=== PATIENT | male | born 1970 | race Caucasian/White ===

== ENCOUNTER → 2017-07-21 11:37 | Outpatient (CLI) | payer SELFPAY ==
[2017-07-21 13:28] LABS: Basophils % 0.6 % (0.1-2.0); Eosinophils # 0.3 K/mm3 (0.0-0.4); Eosinophils % 4.8 % (0.1-12.0); Hematocrit 46.4 % (42.0-52.0); Hemoglobin 15.2 g/dL (14.1-18.0); Lymphocytes # 1.5 K/mm3 (0.7-4.5); Lymphocytes % 24.6 K/mm3 (10-50); Mean Corpuscular HGB Conc 32.9 g/dL (31.8-35.4); Mean Corpuscular Hemoglobin 32.1 pg (27.0-31.2); Mean Corpuscular Volume 97.7 fl (80-94); Mean Platelet Volume 7.4 fl (7.4-10.4); Monocytes # 0.5 K/mm3 (0.1-1.0); Monocytes % 7.7 % (1.7-9.3); Neutrophils # 3.9 K/mm3 (1.8-7.8); Neutrophils % 62.3 % (37.0-80.0); Platelet Count 255 K/mm3 (142-424); Red Blood Count 4.75 M/mm3 (4.60-6.20); Red Cell Distribution Width 12.4 % (11.5-17.5); White Blood Count 6.2 K/mm3 (4.8-10.8)
[2017-07-21 14:11] LABS: Erythrocyte Sedimentation Rate 24 mm/hr (0-15)
[2017-07-21 14:13] LABS: Alanine Aminotransferase 66 U/L (12-78); Albumin Level 3.7 gm/dL (3.4-5.0); Albumin/Globulin Ratio 0.9 (1.1-1.8); Alkaline Phosphatase 101 U/L (46-116); Anion Gap 12.2 mEq/L (5-15); Aspartate Amino Transferase 101 U/L (15-37); Bilirubin,Total 0.8 mg/dL (0.2-1.0); Blood Urea Nitrogen 11 mg/dL (7-18); Calcium 9.6 mg/dL (8.5-10.1); Carbon Dioxide 30 mmol/L (21.0-32.0); Chloride 103 mmol/L (98-107); Creatinine,Serum 1.05 mg/dL (0.70-1.30); Estimated Glomerular Filt Rate 75 ml/min (>60); GFR (African American) 91 ML/MIN (>60); Globulin 3.9 gm/dl (1.3-3.2); Glucose 114 mg/dL (74-106); Magnesium 1.3 mg/dL (1.4-2.2); Potassium 4.2 mmoL/L (3.5-5.1); Sodium 141 mmol/L (136-145); Total Protein,Serum 7.6 gm/dL (6.4-8.2)
[2017-07-21 14:15] LABS: Ethyl Alcohol 0 mg/dL (0-99)
[2017-07-23 06:28] LABS: Folate 5.7 ng/mL (>3.0); Rapid Plasma Reagin Ab Titer Non Reactive (NonRea<1:1); Triiodothyronine (T3) Total 115 ng/dL (71-180); Vitamin B12 718 pg/mL (232-1245)
[2017-07-24 06:27] LABS: Vitamin B1 134.3 nmol/L (66.5-200.0)
== END ==
PROVIDERS: Visit Provider Nurse Practitioner Family
DX: F10.20 Alcohol dependence, uncomplicated (principal); K72.90 Hepatic failure, unspecified without coma; R25.1 Tremor, unspecified; R41.3 Other amnesia
CPT/HCPCS: 36415; 80053; 82607; 82746; 83735; 84425; 84436; 84443; 84480; 85025; 85651; 86592

== ENCOUNTER 2019-06-30 14:00 | Emergency (ER) | payer MEDICAID, SELFPAY ==
[2019-06-30 14:06] VITALS: BP 152/95; PULSE 92; RESP 18; TEMP 36.3; O2SAT 97; BMI 31.1
[2019-06-30 14:15] VITALS: BP 152/95; PULSE 92; RESP 18; TEMP 36.3; O2SAT 97; BMI 31.1
--- NOTE | 2019-06-30 14:21 | HMH.EDUTC ---
[facility] Disposition Clinical Impression: Bronchitis Sinusitis Qualifiers: Sinusitis location: unspecified location Chronicity: acute Recurrence: non-recurrent Qualified Code(s): J01.90 - Acute sinusitis, unspecified Disposition: Home, Self-Care Condition on Discharge: Good Instructions: Sinusitis, DI for Sinusitis Additional Instructions: Drink plenty of fluids. Take tylenol or ibuprofen for pain or fever. Take the medications as directed. Follow up with your regular doctor. GO TO THE ER FOR ANY WORSENING SYMPTOMS Prescriptions: predniSONE [Deltasone 10mg tablet] 10 mg PO BID 3 Days #6 tab [facility]: [facility] Benzon[facility] [Tessalon Perle 100mg Cap] 100 mg PO TIDP PRN #30 cap PRN Reason: Cough [facility]: [facility] Azithromycin [Z-Familia 250mg Tab*] 250 mg PO UD DOSE PK #6 tab Transmission Status: [facility] Referrals: Jade Mathis APRN [Primary Care Provider] - Forms: Work/School Release Time of Disposition: 14:45 Medical Decision Making - Medical Records Medical records reviewed: No: I reviewed the patient's medical records. - Tayo Inquiry Pt receiving controlled substance: No Vital Signs: 06/30/19 14:06 06/30/19 14:15 06/30/19 14:52 Temperature 97.3 F L 97.3 F L 97.3 F L Temperature Source Oral Oral Pulse Rate 92 H Pulse Rate [Radial] 92 H 92 H Respiratory Rate 18 18 18 Blood Pressure 152/95 H Blood Pressure [Right Arm] 152/95 H 152/95 H Blood Pressure Mean [Right Arm] 114 114 Blood Pressure Source [Right Arm] Automatic Cuff Automatic Cuff Blood Pressure Position [Right Arm] Sitting Sitting 02 Sat by Pulse Oximetry 97 97 Oxygen Delivery Method Room Air Room Air - Lab Data Lab results reviewed: Yes: I reviewed the patient's lab results. Lab Results 06/30/19 14:23: Influenza Type A Ag Negative, Influenza Type B Ag Negative Orders (Tests/Meds): ORDERS Category Date Time Status SARS-CoV-2, STORM Stat Lab 06/30/19 14:45 Received [facility] HPI - General Stated complaint: sore throat,cough,SOA,headache Time Seen by Provider: 05/14/20 14:21 Mode of Arrival: Ambulatory Source of Information: Patient Limitations: No Limitations Description of Symptoms (Recalled from Triage Doc. by RN): PT C/O FLU LIKE SYMPTOMS SINCE THURSDAY. COUGH, SORE THROAT, EARACHE, BODYACHES, SOA, KUMARI HEENT Symptoms (Recalled from RN notes): Yes (SORE THROAT, EARACHE, KUMARI) Resp Symptoms (Recalled from RN notes): Yes (COUGH, SOA) Skin Symptoms (Recalled from RN notes): No MS Symptoms (Recalled from RN notes): Yes (BODYACHE) Functional Status (Recalled from RN notes): N/A - History of Present Illness Provider Complaint: He c/o cough, body aches, chilling, and sinus pressure and ear pain for the past 2 days. He has also had diarrhea and nausea, but no vomiting. He has not been exposed to covid as far as he knows. - Related Data Previous Rx's Medication Instructions Recorded Azithromycin [Z-Familia 250mg Tab*] 250 mg PO UD DOSE PK #6 tab 06/30/19 Benzonatate [Tessalon Perle 100mg 100 mg PO TIDP PRN #30 cap 06/30/19 Cap] predniSONE [Deltasone 10mg tablet] 10 mg PO BID 3 Days #6 tab 06/30/19 Allergies Allergy/AdvReac Type Severity Reaction Status Date / Time Sulfa (Sulfonamide Allergy Unknown VOMITTING Unverified 02/03/17 15:01 Antibiotics) [SULFA (SULFONAMIDE ANTIBIOTICS)] - Worker's Comp Is this a Worker's Comp case?: No [facility] History - Hepatitis A Screen Drug use history?: No High risk sexual behaviors?: No History of sexually transmitted infection?: No Currently employed?: No Childcare worker?: No Do you have indoor plumbing?: Yes Do you have electricity?: Yes Attestation statement:: This patient has been screened for Hepatitis A risk factors. I have reviewed the patient's past medical history: Yes ROS Obtained: Yes All systems reviewed & no additional compla
--- NOTE | 2019-06-30 14:30 | PC.NURSE ---
LAB HERE TO SWAB FOR COVID
[2019-06-30 14:47] LABS: UTC Influenza A Antigen Negative (Negative); UTC Influenza B Antigen Negative (Negative)
[2019-06-30 14:52] VITALS: BP 152/95; PULSE 92; RESP 18; TEMP 36.3; O2SAT 97
[2019-07-03 08:41] LABS: Covid-19 Nasal PCR Sendout Lex Not Detected
--- NOTE | 2019-07-03 08:49 | PC.NURSE ---
0849 pt notified of NEGATIVE COVID-19 TEST RESULTS
== END 2019-06-30 14:53 | disposition home or self-care (01) ==
LOC: UTC 14:10
PROVIDERS: Emergency Provider Nurse Practitioner Family; PCP Nurse Practitioner Family
DX: J20.9 Acute bronchitis, unspecified (principal); J01.90 Acute sinusitis, unspecified; Z88.2 Allergy status to sulfonamides
CPT/HCPCS: 87804; 99201; U0004

== ENCOUNTER → 2021-03-22 12:53 | Outpatient (CLI) | payer BC, SELFPAY | PROVIDERS: PCP Nurse Practitioner; Visit Provider Nurse Practitioner | DX: U07.1 COVID-19 (principal) | CPT/HCPCS: C9803; U0003; U0005 ==